=== PATIENT | male | born 1955 | race Caucasian/White ===

== ENCOUNTER 2023-06-26 18:18 | Emergency (ER) | payer OTHER ==
[2023-06-26 18:40] VITALS: BP 164/102; PULSE 105; RESP 20; TEMP 99.7; BMI 28.3
== END 2023-06-26 20:47 | disposition home or self-care (01) ==
LOC: FER 18:18 → EDBD 18:18 → FER 20:47
DX: S29.011A Strain of muscle and tendon of front wall of thorax, initial encounter (principal); R05.9 Cough, unspecified; X50.9XXA Other and unspecified overexertion or strenuous movements or postures, initial encounter; Z20.822 Contact with and (suspected) exposure to COVID-19; Y92.9 Unspecified place or not applicable
CPT/HCPCS: 0241U-QW; 71046-TC-FY; 99284-25